=== PATIENT | female | born 1940 | race Caucasian/White ===

== ENCOUNTER 2022-06-23 09:03 | Inpatient (IN) ==
[~2022-06-23 09:03] MED LIST: CLORAZEPATE 3.75 MG TABLET PO PRN; GLUCAGON 1 MG VIAL IM PRN; MORPHINE 2 MG/1 ML SYRINGE IV PRN; NITROGLYCERIN SL 0.4 MG TABLET SL PRN; SODIUM CHLORIDE 0.9% 1,000 ML IV SCH
[2022-06-23] MEDS ORDERED: DEXTROSE 10% 250 ML BAG IV PRN (09:07)
[2022-06-23 11:36] LABS: Basophils # 0.1 10*3/uL (0.0-0.2); Basophils % 0.7 % (0.0-0.8); Eosinophils # 0.1 10*3/uL (0.0-0.87); Eosinophils % 1.7 % (0.00-10.9); Hemoglobin 16.9 GM/DL (12.0-16.0); Immature Granulocytes % 0.4 %; Immature Granulocytes Absolute 0.03 #; Lymphocytes # 2.1 10*3/uL (1.4-4.0); Lymphocytes % 24.3 % (21.3-54.2); Mean Corpuscular HGB Conc 33.8 GM/DL (32-36); Mean Corpuscular Volume 89.8 FL (87-102); Mean Platelet Volume 10.6 FL (9.6-12.0); Monocytes # 0.6 10*3/uL (0.11-0.8); Monocytes % 7.6 % (1.7-12.7); Neutrophils % 65.3 % (38.7-73.9); Platelet Count 221 T/CUMM (130-400); Red Blood Count 5.57 MC/CUMM (3.8-5.5); Red Cell Distribution Width 13.4 % (9.3-17.3); White Blood Count 8.4 T/CUMM (4-12)
[2022-06-23 11:54] LABS: Albumin 3.8 G/DL (3.4-5.0); Bilirubin,Total 0.6 MG/DL (0.20-1.00); Calcium 9.6 MG/DL (8.5-10.1); Osmolality,Calculated 285.5 MOS/KG (273-304); Potassium 4.1 MMOL/L (3.5-5.1); Total Protein 7.7 G/DL (6.4-8.2)
[2022-06-23] MEDS: INSULIN REGULAR 100 UNIT/ML SUBCUT SCH ×3 (12:13→20:48)
[2022-06-23] MEDS: CHLORHEXIDINE 0.12% ORAL RINSE 60 ML BOTTLE SWISH/SPIT SCH ×2 (13:57→20:47)
[2022-06-23] MEDS: CHLORHEXIDINE 4% SOLN 118 ML BOTTLE TOP SCH ×3 (14:18→20:48)
[2022-06-23] MEDS: ROSUVASTATIN 20 MG TABLET PO SCH (20:47)
[2022-06-23] MEDS: METOPROLOL TARTRATE 25 MG TABLET PO SCH (20:47)
[2022-06-24] MEDS: CHLORHEXIDINE 4% SOLN 118 ML BOTTLE TOP SCH (03:40)
[2022-06-24] MEDS ORDERED: PAPAVERINE 60 MG/2 ML VIAL ONE (04:17)
[2022-06-24] MEDS ORDERED: VANCOMYCIN 1,000 MG VIAL ONE (04:17)
[2022-06-24] MEDS ORDERED: VANCOMYCIN 500 MG VIAL ONE (04:17)
[2022-06-24] MEDS ORDERED: DIAZEPAM 5 MG TABLET PO ONE ×2 (05:00→06:00)
[2022-06-24] MEDS ORDERED: CEFUROXIME INJ 1,500 MG in SODIUM CHLORIDE 0.9% 100 ML IV ONE (05:00)
[2022-06-24] MEDS ORDERED: PANTOPRAZOLE 40 MG TABLET PO ONE ×2 (05:00→06:00)
[2022-06-24] MEDS ORDERED: AMINOCAPROIC ACID 5,000 MG/20 ML VIAL ONE (05:51)
[2022-06-24] MEDS ORDERED: LACTATED RINGERS 1,000 ML IV ONE (05:51)
[2022-06-24] MEDS ORDERED: ETOMIDATE 40 MG/20 ML VIAL IV ONE (05:51)
[2022-06-24] MEDS ORDERED: SODIUM CHLORIDE 0.9% 250 ML IV ONE (05:51)
[2022-06-24] MEDS ORDERED: SUFentanil 250 MCG/5 ML AMP ONE (05:51)
[2022-06-24] MEDS ORDERED: LIDOCAINE 2% 5 ML VIAL ONE ×2 (05:51→09:54)
[2022-06-24] MEDS ORDERED: SODIUM CHLORIDE 0.9% 1,000 ML IV ONE (05:51)
[2022-06-24] MEDS ORDERED: MIDAZOLAM 10 MG/2 ML VIAL ONE (05:51)
[2022-06-24] MEDS ORDERED: VECURONIUM 10 MG VIAL IV ONE (05:51)
[2022-06-24] MEDS ORDERED: PHENYLEPHRINE DRIP 20 MG/250 ML PREMIX IV ONE (05:51)
[2022-06-24] MEDS ORDERED: SODIUM CHLORIDE 0.9% 1,000 ML IV SCH (06:00)
[2022-06-24] MEDS ORDERED: CALCIUM CHLORIDE 1,000 MG/10 ML VIAL IV ONE (06:02)
[2022-06-24] MEDS ORDERED: ePHEDrine 50 MG/ML VIAL ONE (06:14)
[2022-06-24 07:37] LABS: ABG Base Excess -0.3 MMOL/L (-2.5-2.5); ABG HCO3 24.2 MMOL/L (20-26); ABG Oxygen Saturation 99.7 % (95-100); ABG PCO2 32.6 MM HG (35-48); ABG PH 7.452 (7.35-7.45); ABG TCO2 19.5 MMOL/L (23-27); Glucose Heart Surgery 173 MG/DL (74-106); Hematocrit Heart Surgery 43.5 PERCENT (37-47); Hemoglobin Heart Surgery 14.2 G/DL (12.0-16.0); Ionized Calcium Arterial 1.07 MMOL/L (1.21-1.46); PCO2 Patient Temp Arterial 32.6 MMHG; PH Patient Temp Arterial 7.452; Patient Temperature 37 CELCIUS; Potassium Heart/CVR 3.4 MMOL/L (3.5-5.1); Sodium Heart/CVR 138 MMOL/L (135-145)
[2022-06-24 08:10] LABS: Bacteria,Urine Occasional /HPF (Few); RBC,Urine <1 /HPF (0-4); Squamous Epithelial Cell,Urine Occasional /HPF (0-10)
[2022-06-24 08:11] LABS: Bilirubin,Urine Negative (Negative); Blood, Urine Trace mg/dL (Negative); Glucose,Urine (UA) 500 mg/dL (Negative); Ketones,Urine Trace mg/dL (Negative); Nitrite,Urine Negative (Negative); Protein,Urine Negative (Negative); Urine Appearance Clear (Clear); Urine Color Yellow (Yellow); Urine Urobilinogen 0.2 eU/dL (<2.0)
[2022-06-24 08:58] LABS: Hematocrit Heart Surgery 25.9 PERCENT (37-47); Hemoglobin Heart Surgery 8.3 G/DL (12.0-16.0); PCO2 Patient Temp Venous 33.5 MM HG; PH Patient Temp Venous 7.445; PO2 Patient Temp Venous 49.4 MM HG; Potassium Heart/CVR 3.9 MMOL/L (3.5-5.1); VBG Base Excess -0.6 MEQ/L (0-4); VBG HCO3 23.8 MEQ/L (24-28); VBG Oxygen Saturation 89.5 %; VBG PCO2 36.9 MMHG (41-51); VBG PH 7.416; VBG PO2 56.5 MMHG (17-40)
[2022-06-24] MEDS ORDERED: MIDAZOLAM 2 MG/2 ML VIAL ONE ×2 (09:15→09:16)
[2022-06-24] MEDS ORDERED: SEVOFLURANE 1 UNIT/15 MINUTE INH ONE ×2 (09:17→10:20)
[2022-06-24 09:27] LABS: Hematocrit Heart Surgery 24.5 PERCENT (37-47); Hemoglobin Heart Surgery 7.8 G/DL (12.0-16.0); PCO2 Patient Temp Venous 40.8 MM HG; PH Patient Temp Venous 7.437; PO2 Patient Temp Venous 40.7 MM HG; Potassium Heart/CVR 4.2 MMOL/L (3.5-5.1); VBG Base Excess 3.1 MEQ/L (0-4); VBG HCO3 26.9 MEQ/L (24-28); VBG Oxygen Saturation 76.1 %; VBG PCO2 40.8 MMHG (41-51); VBG PH 7.437; VBG PO2 40.7 MMHG (17-40); VBG Total CO2 25.8 MMOL/L
[2022-06-24] MEDS ORDERED: SODIUM BICARBONATE 50 MEQ/50 ML VIAL IV ONE ×2 (09:37→09:55)
[2022-06-24] MEDS ORDERED: NITROPRUSSIDE 50 MG/2 ML VIAL ONE (09:37)
[2022-06-24] MEDS ORDERED: POTASSIUM CHLORIDE RIDER 20 MEQ/100 ML PREMIX IV ONE (09:38)
[2022-06-24] MEDS ORDERED: CALCIUM CHLORIDE 1,000 MG/10 ML SYRINGE IV ONE (09:38)
[2022-06-24] MEDS ORDERED: PHENYLEPHRINE DRIP 40 MG/250 ML PREMIX IV ONE (09:38)
[2022-06-24] MEDS ORDERED: HEPARIN/NACL 0.9% 2 UNITS/ML 1,000 UNIT/500 ML BAG IV ONE (09:41)
[2022-06-24] MEDS ORDERED: PHENYLEPHRINE 1 MG/10 ML SYRINGE IV ONE (09:51)
[2022-06-24 09:53] LABS: ABG Base Excess 2.3 MMOL/L (-2.5-2.5); ABG HCO3 26.5 MMOL/L (20-26); ABG Oxygen Saturation 99.8 % (95-100); ABG PCO2 35.9 MM HG (35-48); ABG PH 7.466 (7.35-7.45); ABG TCO2 23.5 MMOL/L (23-27); Glucose Heart Surgery 273 MG/DL (74-106); Hematocrit Heart Surgery 30.3 PERCENT (37-47); Hemoglobin Heart Surgery 9.8 G/DL (12.0-16.0); Ionized Calcium Arterial 1.15 MMOL/L (1.21-1.46); PCO2 Patient Temp Arterial 35.9 MMHG; PH Patient Temp Arterial 7.466; Patient Temperature 37 CELCIUS; Potassium Heart/CVR 3.5 MMOL/L (3.5-5.1); Sodium Heart/CVR 136 MMOL/L (135-145)
[2022-06-24] MEDS ORDERED: PROTAMINE SULFATE 250 MG/25 ML VIAL IV ONE (09:54)
[2022-06-24] MEDS ORDERED: ALBUMIN 25% 25 GM/100 ML VIAL IV ONE (09:54)
[2022-06-24] MEDS ORDERED: methylPREDNISolone SOD SUC 1,000 MG/8 ML VIAL ONE (09:54)
[2022-06-24] MEDS ORDERED: MAGNESIUM SULFATE 5 GM/10 ML VIAL IV ONE (09:54)
[2022-06-24] MEDS ORDERED: DEXTROSE 5% KCL 20 MEQ 20 MEQ/1,000 ML BAG IV ONE (09:54)
[2022-06-24] MEDS ORDERED: FUROSEMIDE 20 MG/2 ML VIAL ONE (09:55)
[2022-06-24] MEDS ORDERED: HEPARIN 10,000 UNIT/10 ML VIAL ONE (09:55)
[2022-06-24] MEDS ORDERED: MANNITOL 12.5 GM/50 ML VIAL IV ONE (09:55)
[2022-06-24] MEDS ORDERED: MIDAZOLAM 10 MG/2 ML VIAL IV PRN (10:08)
[2022-06-24] MEDS ORDERED: MORPHINE 2 MG/1 ML SYRINGE IV PRN (10:08)
[2022-06-24] MEDS ORDERED: MAGNESIUM SULF RIDER 4 GM/100 ML PREMIX IV PRN (10:08)
[2022-06-24] MEDS ORDERED: INSULIN REGULAR DRIP 100 ML IV SCH (10:08)
[2022-06-24] MEDS ORDERED: MIDAZOLAM 2 MG/2 ML VIAL IV PRN (10:08)
[2022-06-24] MEDS ORDERED: PHENYLEPHRINE DRIP 40 MG/250 ML PREMIX IV PRN (10:08)
[2022-06-24] MEDS ORDERED: ACETAMINOPHEN 650 MG SUPP RECTAL PRN (10:08)
[2022-06-24] MEDS ORDERED: ONDANSETRON 4 MG/2 ML VIAL IV PRN (10:08)
[2022-06-24] MEDS ORDERED: CHLORHEXIDINE 4% SOLN 118 ML BOTTLE TOP PRN (10:08)
[2022-06-24] MEDS ORDERED: INSULIN REGULAR 100 UNIT/ML IV ONE (10:08)
[2022-06-24] MEDS ORDERED: NITROPRUSSIDE 100 MG in DEXTROSE 5% 250 ML IV PRN (10:08)
[2022-06-24] MEDS ORDERED: SODIUM CHLORIDE 0.45% 1,000 ML IV SCH ×2 (10:08)
[2022-06-24] MEDS ORDERED: VECURONIUM 10 MG VIAL IV PRN ×2 (10:08)
[2022-06-24] MEDS ORDERED: CALCIUM CHLORIDE 1,000 MG/10 ML SYRINGE IV PRN (10:08)
[2022-06-24] MEDS ORDERED: MAGNESIUM SULF RIDER 2 GM/50 ML PREMIX IV PRN (10:08)
[2022-06-24] MEDS ORDERED: MORPHINE 10 MG/1 ML VIAL IV PRN (10:08)
[2022-06-24] MEDS ORDERED: DEXTROSE 10% 250 ML BAG IV PRN ×2 (10:18→10:19)
[2022-06-24 11:10] LABS: ABG Base Excess 2.7 MMOL/L (-2.5-2.5); ABG HCO3 26.8 MMOL/L (20-26); ABG Oxygen Saturation 99.3 % (95-100); ABG PCO2 36.6 MM HG (35-48); ABG PH 7.465 (7.35-7.45); ABG TCO2 23.4 MMOL/L (23-27); Basophils # 0.1 10*3/uL (0.0-0.2); Basophils % 0.5 % (0.0-0.8); Eosinophils # 0.1 10*3/uL (0.0-0.87); Eosinophils % 0.7 % (0.00-10.9); Glucose Heart Surgery 248 MG/DL (74-106); Hematocrit 32.8 VOL% (35.7-47.0); Hemoglobin Heart Surgery 11.4 G/DL (12.0-16.0); Immature Granulocytes % 0.5 %; Immature Granulocytes Absolute 0.05 #; Lymphocytes # 1.5 10*3/uL (1.4-4.0); Lymphocytes % 15.5 % (21.3-54.2); Mean Corpuscular HGB Conc 33.5 GM/DL (32-36); Mean Corpuscular Volume 90.9 FL (87-102); Mean Platelet Volume 10.4 FL (9.6-12.0); Monocytes # 0.5 10*3/uL (0.11-0.8); Monocytes % 4.7 % (1.7-12.7); Neutrophils % 78.1 % (38.7-73.9); Platelet Count 197 T/CUMM (130-400); Potassium Heart/CVR 3.2 MMOL/L (3.5-5.1); Red Blood Count 3.61 MC/CUMM (3.8-5.5); Red Cell Distribution Width 13.4 % (9.3-17.3); White Blood Count 9.7 T/CUMM (4-12)
[2022-06-24] MEDS: POTASSIUM CHLORIDE RIDER 20 MEQ/100 ML PREMIX IV PRN ×7 (11:20→22:27)
[2022-06-24 11:26] LABS: PT Patient Result 11.5 SECS (10.5-12.0); Partial Thromboplastin Time 26.6 SECS (23.7-32.9)
[2022-06-24 11:34] LABS: CKMB % 4.03 %
[2022-06-24 11:39] LABS: High Sensitive Troponin I* 600.2 ng/L (0-54)
[2022-06-24 11:44] LABS: Albumin 3.5 G/DL (3.4-5.0); Bilirubin,Total 1.3 MG/DL (0.20-1.00); Calcium 9.5 MG/DL (8.5-10.1); Osmolality,Calculated 295.1 MOS/KG (273-304); Potassium 3.2 MMOL/L (3.5-5.1); Total Protein 6.3 G/DL (6.4-8.2)
[2022-06-24 12:16] LABS: ABG Base Excess 2.4 MMOL/L (-2.5-2.5); ABG HCO3 26.5 MMOL/L (20-26); ABG Oxygen Saturation 97.9 % (95-100); ABG PCO2 36.9 MM HG (35-48); ABG PH 7.458 (7.35-7.45); ABG TCO2 23.1 MMOL/L (23-27); Glucose Heart Surgery 222 MG/DL (74-106); Hematocrit Heart Surgery 36.7 PERCENT (37-47); Hemoglobin Heart Surgery 11.9 G/DL (12.0-16.0); Potassium Heart/CVR 4.4 MMOL/L (3.5-5.1)
[2022-06-24] MEDS: ALBUMIN 5% 12.5 GM/250 ML VIAL IV PRN ×3 (13:12→22:28)
[2022-06-24 14:12] LABS: ABG Base Excess 3.5 MMOL/L (-2.5-2.5); ABG HCO3 27.5 MMOL/L (20-26); ABG PCO2 37.3 MM HG (35-48); Glucose Heart Surgery 172 MG/DL (74-106); Hematocrit Heart Surgery 35.9 PERCENT (37-47); Hemoglobin Heart Surgery 11.7 G/DL (12.0-16.0); Potassium Heart/CVR 3.1 MMOL/L (3.5-5.1)
[2022-06-24] MEDS: LACTATED RINGERS 250 ML IV PRN ×3 (15:15→22:59)
[2022-06-24 16:17] LABS: ABG Base Excess 3.2 MMOL/L (-2.5-2.5); ABG HCO3 27.3 MMOL/L (20-26); ABG Oxygen Saturation 98.6 % (95-100); ABG PCO2 37.4 MM HG (35-48); ABG PH 7.464 (7.35-7.45); Glucose Heart Surgery 115 MG/DL (74-106); Hematocrit Heart Surgery 42.6 PERCENT (37-47); Hemoglobin Heart Surgery 13.9 G/DL (12.0-16.0); Potassium Heart/CVR 3.6 MMOL/L (3.5-5.1)
[2022-06-24] MEDS: POTASSIUM CHLORIDE RIDER 10 MEQ/100 ML PREMIX IV PRN (17:05)
[2022-06-24] MEDS: CEFUROXIME INJ 1,500 MG in SODIUM CHLORIDE 0.9% 100 ML IV SCH (17:20)
[2022-06-24 18:10] LABS: ABG Base Excess 1.7 MMOL/L (-2.5-2.5); ABG Oxygen Saturation 98.2 % (95-100); ABG PCO2 36.1 MM HG (35-48); ABG PH 7.456 (7.35-7.45); ABG TCO2 22.7 MMOL/L (23-27); Glucose Heart Surgery 143 MG/DL (74-106); Hematocrit Heart Surgery 34.1 PERCENT (37-47); Hemoglobin Heart Surgery 11.1 G/DL (12.0-16.0)
[2022-06-24 18:32] LABS: CKMB % 3.01 %
[2022-06-24 18:33] LABS: High Sensitive Troponin I* 1385.2 ng/L (0-54)
[2022-06-24] MEDS ORDERED: FUROSEMIDE 40 MG/4 ML VIAL IV ONE (21:13)
[2022-06-24 21:17] LABS: ABG HCO3 25.3 MMOL/L (20-26); ABG Oxygen Saturation 98.5 % (95-100); ABG PCO2 43.7 MM HG (35-48); ABG PH 7.387 (7.35-7.45); ABG TCO2 23.5 MMOL/L (23-27); Glucose Heart Surgery 143 MG/DL (74-106); Hematocrit Heart Surgery 34.5 PERCENT (37-47); Hemoglobin Heart Surgery 11.2 G/DL (12.0-16.0)
[2022-06-25 00:30] LABS: ABG Base Excess 0.7 MMOL/L (-2.5-2.5); ABG Oxygen Saturation 98.4 % (95-100); ABG PCO2 47.3 MM HG (35-48); ABG TCO2 23.4 MMOL/L (23-27); Glucose Heart Surgery 131 MG/DL (74-106); Hematocrit Heart Surgery 40.3 PERCENT (37-47); Hemoglobin Heart Surgery 13.1 G/DL (12.0-16.0); Potassium Heart/CVR 4.4 MMOL/L (3.5-5.1)
[2022-06-25] MEDS: INSULIN REGULAR 100 UNIT/ML IV PRN ×2 (01:12→02:11)
[2022-06-25 01:30] LABS: ABG Base Excess -0.3 MMOL/L (-2.5-2.5); ABG HCO3 24.1 MMOL/L (20-26); ABG Oxygen Saturation 98.3 % (95-100); ABG PCO2 47.6 MM HG (35-48); ABG PH 7.343 (7.35-7.45); ABG TCO2 23.3 MMOL/L (23-27); Glucose Heart Surgery 191 MG/DL (74-106); Hematocrit Heart Surgery 33.9 PERCENT (37-47); Potassium Heart/CVR 4.2 MMOL/L (3.5-5.1)
[2022-06-25 02:13] LABS: ABG Base Excess -0.4 MMOL/L (-2.5-2.5); ABG HCO3 24.1 MMOL/L (20-26); ABG Oxygen Saturation 98.6 % (95-100); ABG PCO2 44.8 MM HG (35-48); ABG PH 7.359 (7.35-7.45); ABG TCO2 22.7 MMOL/L (23-27); Glucose Heart Surgery 173 MG/DL (74-106); Hematocrit Heart Surgery 34.3 PERCENT (37-47); Hemoglobin Heart Surgery 11.1 G/DL (12.0-16.0)
[2022-06-25 02:37] LABS: CKMB % 2.6 %
[2022-06-25 02:39] LABS: High Sensitive Troponin I* 1763.7 ng/L (0-54)
[2022-06-25] MEDS: CHLORHEXIDINE 0.12% ORAL RINSE 60 ML BOTTLE SWISH/SPIT SCH ×4 (02:50→21:20)
[2022-06-25 03:41] LABS: ABG Base Excess 1.9 MMOL/L (-2.5-2.5); ABG Oxygen Saturation 95.6 % (95-100); ABG PH 7.371 (7.35-7.45); ABG PO2 83.4 MM HG (80-95); Glucose Heart Surgery 148 MG/DL (74-106); Hematocrit Heart Surgery 34.1 PERCENT (37-47); Hemoglobin Heart Surgery 11.1 G/DL (12.0-16.0); Potassium Heart/CVR 3.8 MMOL/L (3.5-5.1)
[2022-06-25 03:49] LABS: Basophils % 0.1 % (0.0-0.8); Hemoglobin 10.6 GM/DL (12.0-16.0); Immature Granulocytes % 0.4 %; Immature Granulocytes Absolute 0.06 #; Lymphocytes # 0.8 10*3/uL (1.4-4.0); Lymphocytes % 5.6 % (21.3-54.2); Mean Corpuscular HGB Conc 32.1 GM/DL (32-36); Mean Corpuscular Volume 93.5 FL (87-102); Mean Platelet Volume 10.8 FL (9.6-12.0); Monocytes # 0.6 10*3/uL (0.11-0.8); Neutrophils % 89.9 % (38.7-73.9); Platelet Count 199 T/CUMM (130-400); Red Blood Count 3.53 MC/CUMM (3.8-5.5); Red Cell Distribution Width 13.9 % (9.3-17.3); White Blood Count 13.8 T/CUMM (4-12)
[2022-06-25 04:07] LABS: Albumin 4.2 G/DL (3.4-5.0); Bilirubin,Direct 0.32 MG/DL (0.0-0.20); Bilirubin,Total 0.9 MG/DL (0.20-1.00); Calcium 9.1 MG/DL (8.5-10.1); Potassium 3.8 MMOL/L (3.5-5.1); Total Protein 7.1 G/DL (6.4-8.2)
[2022-06-25] MEDS: CEFUROXIME INJ 1,500 MG in SODIUM CHLORIDE 0.9% 100 ML IV SCH ×2 (05:02→17:41)
[2022-06-25] MEDS: POTASSIUM CHLORIDE RIDER 20 MEQ/100 ML PREMIX IV PRN (05:06)
[2022-06-25] MEDS: POTASSIUM CHLORIDE RIDER 10 MEQ/100 ML PREMIX IV PRN (05:42)
[2022-06-25] MEDS: INSULIN REGULAR 100 UNIT/ML SUBCUT SCH ×6 (07:40→21:21)
[2022-06-25] MEDS: METOPROLOL TARTRATE 25 MG TABLET PO SCH ×3 (07:40→21:20)
[2022-06-25] MEDS: ASCORBIC ACID 500 MG TABLET PO SCH ×2 (08:03→21:20)
[2022-06-25] MEDS: PANTOPRAZOLE 40 MG TABLET PO SCH (08:03)
[2022-06-25] MEDS: CYANOCOBALAMIN 500 MCG TABLET PO SCH (08:04)
[2022-06-25] MEDS ORDERED: ACETAMINOPHEN 325 MG TABLET ONE (10:11)
[2022-06-25] MEDS ORDERED: ACETAMINOPHEN 325 MG TABLET PO PRN ×2 (10:12→13:58)
[2022-06-25 11:59] LABS: CKMB % 2.04 %; High Sensitive Troponin I* 1823.9 ng/L (0-54)
[2022-06-25] MEDS ORDERED: ZALEPLON 5 MG CAPSULE PO PRN (13:58)
[2022-06-25] MEDS ORDERED: DEXTROSE 10% 250 ML BAG IV PRN (13:58)
[2022-06-25] MEDS ORDERED: ONDANSETRON 4 MG/2 ML VIAL IV PRN (13:58)
[2022-06-25] MEDS ORDERED: MAGNESIUM SULF RIDER 4 GM/100 ML PREMIX IV PRN (13:58)
[2022-06-25] MEDS ORDERED: POTASSIUM CHLORIDE 20 MEQ TABLET PO PRN (13:58)
[2022-06-25] MEDS ORDERED: oxyCODONE/ACETAMINOPHEN 5-325 MG TABLET PO PRN (13:58)
[2022-06-25] MEDS ORDERED: GLUCAGON 1 MG VIAL IM PRN ×2 (13:58)
[2022-06-25] MEDS ORDERED: SODIUM CHLOR 0.45% KCL 20 MEQ 20 MEQ/1,000 ML BAG IV SCH (13:58)
[2022-06-25] MEDS ORDERED: DEXTROSE 50% 25 GM/50 ML VIAL IV PRN (13:58)
[2022-06-25] MEDS ORDERED: MAGNESIUM SULF RIDER 2 GM/50 ML PREMIX IV PRN (13:58)
[2022-06-25] MEDS ORDERED: ALUMINUM/MAGNES/SIMETH MAX STR 30 ML UDCUP PO PRN (13:58)
[2022-06-25] MEDS ORDERED: MAGNESIUM HYDROXIDE SUSP 30 ML UDCUP PO PRN (13:58)
[2022-06-25] MEDS: POTASSIUM CHLORIDE 10 MEQ TABLET PO SCH (21:20)
[2022-06-25] MEDS: GLIMEPIRIDE 4 MG TABLET PO SCH (21:20)
[2022-06-25] MEDS: ROSUVASTATIN 20 MG TABLET PO SCH (21:20)
[2022-06-25] MEDS: ASPIRIN EC 81 MG TABLET PO SCH (21:20)
[2022-06-26] MEDS: INSULIN REGULAR 100 UNIT/ML SUBCUT SCH ×6 (00:26→21:26)
[2022-06-26 05:41] LABS: Basophils % 0.1 % (0.0-0.8); Hematocrit 35.5 VOL% (35.7-47.0); Hemoglobin 11.5 GM/DL (12.0-16.0); Immature Granulocytes % 1.2 %; Immature Granulocytes Absolute 0.21 #; Lymphocytes # 1.3 10*3/uL (1.4-4.0); Lymphocytes % 7.5 % (21.3-54.2); Mean Corpuscular HGB Conc 32.4 GM/DL (32-36); Mean Corpuscular Volume 94.4 FL (87-102); Mean Platelet Volume 11.2 FL (9.6-12.0); Monocytes # 0.9 10*3/uL (0.11-0.8); Monocytes % 5.4 % (1.7-12.7); Neutrophils % 85.8 % (38.7-73.9); Platelet Count 201 T/CUMM (130-400); Red Blood Count 3.76 MC/CUMM (3.8-5.5); White Blood Count 17.2 T/CUMM (4-12)
[2022-06-26] MEDS ORDERED: FUROSEMIDE 40 MG/4 ML VIAL IV ONE (06:00)
[2022-06-26 06:01] LABS: Calcium 9.1 MG/DL (8.5-10.1); Osmolality,Calculated 285.5 MOS/KG (273-304); Potassium 4.3 MMOL/L (3.5-5.1)
[2022-06-26 06:03] LABS: Albumin 3.8 G/DL (3.4-5.0); Bilirubin,Direct 0.15 MG/DL (0.0-0.20); Bilirubin,Total 0.6 MG/DL (0.20-1.00); Calcium 9.2 MG/DL (8.5-10.1); Osmolality,Calculated 284.5 MOS/KG (273-304); Potassium 4.3 MMOL/L (3.5-5.1); Total Protein 6.8 G/DL (6.4-8.2)
[2022-06-26 06:05] LABS: Alanine Aminotransferase 23 U/L (13-56); Albumin 3.7 G/DL (3.4-5.0); Alkaline Phosphatase 58 U/L (45-117); Aspartate Amino Transferase 21 U/L (0-37); Bilirubin,Indirect 0.5 MG/DL (0.0-1.0); Total Protein 6.8 G/DL (6.4-8.2)
[2022-06-26] MEDS: CYANOCOBALAMIN 500 MCG TABLET PO SCH (08:43)
[2022-06-26] MEDS: FERROUS SULFATE 325 MG TABLET PO SCH (08:43)
[2022-06-26] MEDS: POTASSIUM CHLORIDE 10 MEQ TABLET PO SCH ×2 (08:43→20:40)
[2022-06-26] MEDS: PANTOPRAZOLE 40 MG TABLET PO SCH (08:43)
[2022-06-26] MEDS: PARoxetine 20 MG TABLET PO SCH (08:44)
[2022-06-26] MEDS: GLIMEPIRIDE 4 MG TABLET PO SCH ×2 (08:44→20:40)
[2022-06-26] MEDS: ASCORBIC ACID 500 MG TABLET PO SCH ×2 (08:44→20:39)
[2022-06-26] MEDS: DOCUSATE SODIUM 100 MG CAPSULE PO SCH (08:44)
[2022-06-26] MEDS: METOPROLOL TARTRATE 25 MG TABLET PO SCH ×2 (08:44→20:39)
[2022-06-26] MEDS: CHLORHEXIDINE 0.12% ORAL RINSE 60 ML BOTTLE SWISH/SPIT SCH ×2 (08:45→20:42)
[2022-06-26] MEDS: ROSUVASTATIN 20 MG TABLET PO SCH (20:40)
[2022-06-26] MEDS: ASPIRIN EC 81 MG TABLET PO SCH (20:40)
[2022-06-27 05:49] LABS: Basophils % 0.2 % (0.0-0.8); Eosinophils # 0.1 10*3/uL (0.0-0.87); Eosinophils % 0.6 % (0.00-10.9); Hematocrit 38.7 VOL% (35.7-47.0); Hemoglobin 12.2 GM/DL (12.0-16.0); Immature Granulocytes % 0.5 %; Immature Granulocytes Absolute 0.06 #; Lymphocytes # 2.8 10*3/uL (1.4-4.0); Lymphocytes % 22.9 % (21.3-54.2); Mean Corpuscular HGB Conc 31.5 GM/DL (32-36); Mean Corpuscular Volume 95.6 FL (87-102); Mean Platelet Volume 11.4 FL (9.6-12.0); Monocytes # 0.9 10*3/uL (0.11-0.8); Neutrophils % 68.8 % (38.7-73.9); Platelet Count 195 T/CUMM (130-400); Red Blood Count 4.05 MC/CUMM (3.8-5.5); Red Cell Distribution Width 13.9 % (9.3-17.3); White Blood Count 12.2 T/CUMM (4-12)
[2022-06-27 06:16] LABS: Alanine Aminotransferase 19 U/L (13-56); Albumin 3.5 G/DL (3.4-5.0); Aspartate Amino Transferase 14 U/L (0-37); Bilirubin,Indirect 0.7 MG/DL (0.0-1.0); Total Protein 6.8 G/DL (6.4-8.2)
[2022-06-27 06:17] LABS: Alkaline Phosphatase 57 U/L (45-117)
[2022-06-27 06:20] LABS: Albumin 3.4 G/DL (3.4-5.0); Bilirubin,Direct 0.24 MG/DL (0.0-0.20); Bilirubin,Total 0.9 MG/DL (0.20-1.00); Calcium 8.8 MG/DL (8.5-10.1); Potassium 3.6 MMOL/L (3.5-5.1); Total Protein 6.8 G/DL (6.4-8.2)
[2022-06-27] MEDS ORDERED: LACTULOSE 20 GM/30 ML UDCUP PO PRN (07:33)
[2022-06-27] MEDS: INSULIN REGULAR 100 UNIT/ML SUBCUT SCH ×4 (07:45→21:56)
[2022-06-27] MEDS ORDERED: POTASSIUM CHLORIDE 20 MEQ TABLET PO ONE (08:17)
[2022-06-27] MEDS: ASCORBIC ACID 500 MG TABLET PO SCH ×2 (08:40→21:56)
[2022-06-27] MEDS: FERROUS SULFATE 325 MG TABLET PO SCH (08:41)
[2022-06-27] MEDS: METOPROLOL TARTRATE 25 MG TABLET PO SCH ×2 (08:41→21:56)
[2022-06-27] MEDS: GLIMEPIRIDE 4 MG TABLET PO SCH ×2 (08:41→21:56)
[2022-06-27] MEDS: DOCUSATE SODIUM 100 MG CAPSULE PO SCH (08:41)
[2022-06-27] MEDS: PANTOPRAZOLE 40 MG TABLET PO SCH (08:41)
[2022-06-27] MEDS: CHLORHEXIDINE 0.12% ORAL RINSE 60 ML BOTTLE SWISH/SPIT SCH ×2 (08:41→21:58)
[2022-06-27] MEDS: POTASSIUM CHLORIDE 10 MEQ TABLET PO SCH ×2 (08:41→21:56)
[2022-06-27] MEDS: PARoxetine 20 MG TABLET PO SCH (08:41)
[2022-06-27] MEDS: CYANOCOBALAMIN 500 MCG TABLET PO SCH (08:46)
[2022-06-27] MEDS: ASPIRIN EC 81 MG TABLET PO SCH (21:55)
[2022-06-27] MEDS: ROSUVASTATIN 20 MG TABLET PO SCH (21:56)
[2022-06-28 05:21] LABS: Basophils % 0.3 % (0.0-0.8); Eosinophils # 0.2 10*3/uL (0.0-0.87); Eosinophils % 1.6 % (0.00-10.9); Hematocrit 39.4 VOL% (35.7-47.0); Hemoglobin 12.6 GM/DL (12.0-16.0); Immature Granulocytes % 0.6 %; Immature Granulocytes Absolute 0.06 #; Lymphocytes # 2.3 10*3/uL (1.4-4.0); Lymphocytes % 22.6 % (21.3-54.2); Mean Corpuscular Volume 94.7 FL (87-102); Mean Platelet Volume 11.2 FL (9.6-12.0); Monocytes # 0.8 10*3/uL (0.11-0.8); Monocytes % 7.8 % (1.7-12.7); Neutrophils % 67.1 % (38.7-73.9); Platelet Count 213 T/CUMM (130-400); Red Blood Count 4.16 MC/CUMM (3.8-5.5); Red Cell Distribution Width 13.6 % (9.3-17.3); White Blood Count 9.9 T/CUMM (4-12)
[2022-06-28 05:36] LABS: Potassium 3.9 MMOL/L (3.5-5.1)
[2022-06-28] MEDS: INSULIN REGULAR 100 UNIT/ML SUBCUT SCH ×4 (07:43→20:52)
[2022-06-28] MEDS: ASCORBIC ACID 500 MG TABLET PO SCH ×2 (09:29→20:49)
[2022-06-28] MEDS: CYANOCOBALAMIN 500 MCG TABLET PO SCH (09:29)
[2022-06-28] MEDS: PARoxetine 20 MG TABLET PO SCH (09:29)
[2022-06-28] MEDS: FERROUS SULFATE 325 MG TABLET PO SCH (09:29)
[2022-06-28] MEDS: POTASSIUM CHLORIDE 10 MEQ TABLET PO SCH ×2 (09:29→20:49)
[2022-06-28] MEDS: METOPROLOL TARTRATE 25 MG TABLET PO SCH ×2 (09:29→20:49)
[2022-06-28] MEDS: DOCUSATE SODIUM 100 MG CAPSULE PO SCH (09:29)
[2022-06-28] MEDS: PANTOPRAZOLE 40 MG TABLET PO SCH (09:30)
[2022-06-28] MEDS: GLIMEPIRIDE 4 MG TABLET PO SCH ×2 (09:30→20:49)
[2022-06-28] MEDS: CHLORHEXIDINE 0.12% ORAL RINSE 60 ML BOTTLE SWISH/SPIT SCH ×2 (09:30→20:51)
[2022-06-28] MEDS: ASPIRIN EC 81 MG TABLET PO SCH (20:49)
[2022-06-28] MEDS: ROSUVASTATIN 20 MG TABLET PO SCH (20:49)
[2022-06-29 05:31] LABS: Alanine Aminotransferase 27 U/L (13-56); Albumin 3.1 G/DL (3.4-5.0); Alkaline Phosphatase 63 U/L (45-117); Aspartate Amino Transferase 17 U/L (0-37); Bilirubin,Indirect 0.5 MG/DL (0.0-1.0); Blood Urea Nitrogen 39 MG/DL (7-18); Calcium 9.1 MG/DL (8.5-10.1); Carbon Dioxide 24 MMOL/L (21-32); Chloride 107 MMOL/L (98-107); Glucose 143 MG/DL (74-106); Osmolality,Calculated 289.4 MOS/KG (273-304); Potassium 4.2 MMOL/L (3.5-5.1); Sodium 140 MMOL/L (136-145); Total Protein 6.7 G/DL (6.4-8.2)
[2022-06-29] MEDS: INSULIN REGULAR 100 UNIT/ML SUBCUT SCH (07:21)
[2022-06-29 07:36] LABS: Basophils # 0.1 10*3/uL (0.0-0.2); Basophils % 0.5 % (0.0-0.8); Eosinophils # 0.2 10*3/uL (0.0-0.87); Eosinophils % 2.3 % (0.00-10.9); Hematocrit 39.9 VOL% (35.7-47.0); Hemoglobin 12.9 GM/DL (12.0-16.0); Immature Granulocytes % 0.7 %; Immature Granulocytes Absolute 0.07 #; Lymphocytes # 2.1 10*3/uL (1.4-4.0); Lymphocytes % 19.4 % (21.3-54.2); Mean Corpuscular HGB Conc 32.3 GM/DL (32-36); Mean Corpuscular Volume 93.9 FL (87-102); Mean Platelet Volume 11.5 FL (9.6-12.0); Monocytes # 0.8 10*3/uL (0.11-0.8); Monocytes % 7.8 % (1.7-12.7); Neutrophils % 69.3 % (38.7-73.9); Platelet Count 237 T/CUMM (130-400); Red Blood Count 4.25 MC/CUMM (3.8-5.5); Red Cell Distribution Width 13.5 % (9.3-17.3); White Blood Count 10.6 T/CUMM (4-12)
[2022-06-29 08:32] VITALS: BP 129/84
[2022-06-29] MEDS: CHLORHEXIDINE 0.12% ORAL RINSE 60 ML BOTTLE SWISH/SPIT SCH (08:58)
[2022-06-29] MEDS: PARoxetine 20 MG TABLET PO SCH (09:00)
[2022-06-29] MEDS: METOPROLOL TARTRATE 25 MG TABLET PO SCH (09:00)
[2022-06-29] MEDS: CYANOCOBALAMIN 500 MCG TABLET PO SCH (09:00)
[2022-06-29] MEDS: POTASSIUM CHLORIDE 10 MEQ TABLET PO SCH (09:00)
[2022-06-29] MEDS: GLIMEPIRIDE 4 MG TABLET PO SCH (09:00)
[2022-06-29] MEDS: ASCORBIC ACID 500 MG TABLET PO SCH (09:01)
[2022-06-29] MEDS: PANTOPRAZOLE 40 MG TABLET PO SCH (09:01)
[2022-06-29] MEDS: FERROUS SULFATE 325 MG TABLET PO SCH (09:01)
[2022-06-29] MEDS: DOCUSATE SODIUM 100 MG CAPSULE PO SCH (09:01)
== END 2022-06-29 12:09 | disposition home health service (06) | DRG 236 ==
LOC: N.TELES 09:03 → N.CVR 06-24 10:22 → N.ICU 06-25 07:02 → N.TELES 06-25 13:54